=== PATIENT | male | born 1950 | race Caucasian/White ===

== ENCOUNTER 2020-12-29 12:52 | Outpatient (CLI) | payer MEDICARE, MEDICAID, SELFPAY ==
[2020-12-29 13:30] VITALS: PULSE 90; O2SAT 95
[2020-12-29 13:35] VITALS: PULSE 92; O2SAT 85
[2020-12-29 13:40] VITALS: PULSE 90; O2SAT 94
--- NOTE | 2020-12-29 14:19 | HOMEO2EVAL ---
Home Oxygen Evaluation RC: Home Oxygen (O2) Evaluation Start: 12/29/20 14:14 Freq: Status: Active Protocol: RPE Activity Type Activity Date Activity User E-Sign Co-Sign Detail Recorded Client Recorded Date Recorded By Document 12/29/20 13:30 KMV [email or web address] 12/29/20 14:15 KMV Document 12/29/20 13:35 [email or web address] [email or web address] 12/29/20 14:17 KMV Document 12/29/20 13:40 [email or web address] [email or web address] 12/29/20 14:17 KMV 12/29/20 12/29/20 12/29/20 13:30 13:35 13:40 Home O2 Evaluation Test Phase Resting Exercise Exercise Oxygen Delivery Room Air Room Air Nasal Cannula Oxygen Flow Rate (L/min) 1 Pulse Oximetry (90-100 %) 95 85 L 94 Pulse Rate (60-100 beats/min) 90 92 90 Activity Tolerance Good Rating of Perceived Dyspnea (PD) +2 Mild, Some Difficulty, Noticeable to the Observer Ambulation Distance (feet) 400 Home Oxygen Evaluation Comments Pt failed 6 [address]. needs O2 1 lpm with activity. Treatment Charges O2 Evaluation - Outpatient
== END 2020-12-29 12:53 | disposition home or self-care (01) ==
LOC: ANHPFT 12:58
PROVIDERS: PCP Internal Medicine; Visit Provider Internal Medicine Critical Care Medicine
DX: R06.00 Dyspnea, unspecified (principal)
CPT/HCPCS: 94618

== ENCOUNTER 2021-03-21 14:27 | Outpatient (CLI) | payer MEDICARE, MEDICAID, SELFPAY ==
[2021-03-21 16:30] LABS: Basophils Absolute Auto 0.1 K/mm3 (0.0-0.1); Basophils Percent Auto 0.5 % (0.2-1.2); Eosinophils Absolute Auto 0.1 K/mm3 (0-0.3); Eosinophils Percent Auto 0.8 % (0-4.4); Hematocrit 40.1 % (42.0-52.0); Hemoglobin 13.5 g/dL (14.0-18.0); Immature Granulocyte Absolute 0.04 K/mm3 (0.00-0.031); Immature Granulocyte Percent A 0.4 % (0-0.5); Lymphocytes Absolute Auto 1.49 K/mm3 (0.9-3.2); Lymphocytes Percent Auto 15.5 % (18.3-44.2); Mean Corpuscular HGB Conc 33.7 g/dl (32-36); Mean Corpuscular Hemoglobin 29.2 pg (26-34); Mean Corpuscular Volume 86.6 fl (80-100); Mean Platelet Volume 8.9 fl (7.4-10.4); Monocytes Absolute Auto 1.2 K/mm3 (0.1-0.6); Monocytes Percent Auto 12.6 % (2.6-8.5); Neutrophils Absolute Auto 6.7 K/mm3 (1.3-6.7); Neutrophils Percent Auto 70.2 % (45.5-73.1); Platelet Count Result 379 k/mm3 (150-375); Red Blood Count 4.63 M/mm3 (4.6-6.20); Red Cell Distribution Width 12.5 % (11.5-14.5); White Blood Count 9.6 K/mm3 (4.5-10.0)
[2021-03-21 16:39] LABS: Alanine Aminotransferase 20 U/L (4-50); Albumin Level 4.3 g/dL (3.5-5.1); Alkaline Phosphatase 78 U/L (38-126); Anion Gap 9 mmol/L (8-16); Aspartate Amino Transferase 26 U/L (17-59); Bilirubin,Total 0.5 mg/dL (0.2-1.3); Blood Urea Nitrogen 12 mg/dL (9-20); Calcium 9.2 mg/dL (8.4-10.2); Carbon Dioxide 29 mmol/L (22-30); Chloride 97 mmol/L (98-107); Cholesterol 212 mg/dL (0-200); Estimated Glomerular Filt Rate > 60; Glucose 81 mg/dL (75-110); HDL Direct 47 mg/dL; Potassium 4.1 mmol/L (3.4-5.0); Sodium 135 mmol/L (137-145); Triglycerides 300 mg/dL (<150)
[2021-03-21 16:50] LABS: LDL Cholesterol Direct 101 mg/dL
[2021-03-21 17:10] LABS: Prostate Specific Antigen 1.3 ng/mL (< OR = 4.0)
--- NOTE | 2021-03-23 08:23 | WPDPFTINT ---
PFT Procedure Performed PFT Procedure Performed Spirometry with Pre/Post Bronchodilator Plethysmography (Lung Vol) Diffusing Cap (DLCO) Flow Vol Loop PFT Interpretation DOS: 03/21/2021 REQUESTING: Dr. Gomes REASON FOR TESTING: Emphysema PULMONARY FUNCTION TESTS Spirometry: FEV1 is a 38% predicted, 1.21 L. This is severely decreased. The FVC is 72%. The FEV1/ FVC ratio is 40% consistent with airflow obstruction. There is a minimal response to bronchodilator, 4% increase in the FEV1. Lung volumes: total lung capacity is mildly increased 125% predicted consistent with mild hyperinflation. Residual volume is severely increased to 133% consistent with air trapping. Diffusion: DLCO 43%, moderately decreased. Flow volume loop: Severe scooping of the expiratory limb. IMPRESSION: This study shows a severe obstructive ventilatory impairment without a significant response to bronchodilator, mild hyperinflation, severe air trapping and a moderate diffusion impairment. This is consistent with emphysema. Lack of response to bronchodilators should not preclude use if clinically indicated. Ashwini Hill MD
--- NOTE | 2021-08-09 11:51 | HOMEO2EVAL ---
Evaluation was performed at [facility]
== END 2021-03-21 14:28 | disposition home or self-care (01) ==
PROVIDERS: PCP Internal Medicine; Referring Provider Internal Medicine; Visit Provider Internal Medicine Pulmonary Disease
DX: Z12.5 Encounter for screening for malignant neoplasm of prostate (principal); I10 Essential (primary) hypertension; Z13.220 Encounter for screening for lipoid disorders; R06.00 Dyspnea, unspecified
CPT/HCPCS: 36415; 80053; 80061; 84153; 85025; 94060; 94726; 94729; G0103

== ENCOUNTER 2021-08-22 13:26 | Outpatient (CLI) | payer MEDICARE, MEDICAID, SELFPAY ==
--- NOTE | ~2021-08-22 | CT_ITS ---
EXAMINATION: CT lung screening DATE: 08/22/2021 14:01 INDICATION: Personal history of tobacco dependence. TECHNIQUE: Computed tomography (CT) of the chest was performed without intravenous contrast. The dose -length product was 172.63 mGy-cm. Automated exposure control and iterative reconstruction technique were employed. COMPARISON: Chest dated 10/06/2016 FINDINGS: No significant thoracic lymphadenopathy. There is atherosclerosis. Heart size is normal. No significant pleural or pericardial effusion. There is cirrhosis of the liver. There is severe bullou s emphysema, most advanced in the left upper lobe. There are 2-3 mm right upper lobe nodules. There i s lingular atelectasis/scarring. No pneumothorax. IMPRESSION: 1. Lung-RADS category 2: Benign appearance or behavior. Continue annual screening with noncontrast lo w-dose chest CT in 12 months. Reviewed, dictated and finalized at location A. S CUTTER IMPRESSION: 1. Lung-RADS category 2: Benign appearance or behavior. Continue annual screeni ng with noncontrast low-dose chest CT in 12 months.
== END 2021-08-22 13:27 | disposition home or self-care (01) ==
LOC: ANHIMG 13:34
PROVIDERS: PCP Internal Medicine; Visit Provider Internal Medicine Pulmonary Disease
DX: Z87.891 Personal history of nicotine dependence (principal)
CPT/HCPCS: 71271

== ENCOUNTER 2022-11-19 15:01 | Outpatient (CLI) | payer MEDICARE, MEDICAID, SELFPAY ==
--- NOTE | ~2022-11-19 | CT_ITS ---
EXAMINATION: CT lung screening DATE: 11/19/2022 15:38 INDICATION: Personal history of nicotine dependence, prior smoker with 104 pack year history TECHNIQUE: Computed tomography (CT) of the chest was performed without intravenous contrast. The dose -length product (DLP) was 147.87 mGy-cm. Automated exposure control and iterative reconstruction tech [id number] were employed. COMPARISON: 08/22/2021 FINDINGS: There is severe emphysema. There are areas of scarring and atelectasis of the lungs. Chroni c nodules measuring 2 to 3 mm are unchanged. No pleural effusion or pneumothorax. No pathologically e nlarged thoracic lymph nodes are identified. The heart size is normal. Calcified coronary artery athe rosclerosis is noted. There is nodularity of the liver surface, consistent with cirrhosis. There is m ild thoracic spondylosis. IMPRESSION: 1. Lung-RADS category 2: Benign appearance or behavior. Continue annual screening with noncontrast lo w-dose chest CT in 12 months. Reviewed, dictated and finalized at location B. ISTICS TUTOR IMPRESSION: 1. Lung-RADS category 2: Benign appearance or behavior. Continue annual screeni ng with noncontrast low-dose chest CT in 12 months.
== END 2022-11-19 15:02 | disposition home or self-care (01) ==
LOC: ANHIMG 15:04
PROVIDERS: Visit Provider Internal Medicine Pulmonary Disease
DX: Z12.2 Encounter for screening for malignant neoplasm of respiratory organs (principal); Z87.891 Personal history of nicotine dependence
CPT/HCPCS: 71271